=== PATIENT | male | born 1955 | race Caucasian/White ===

== ENCOUNTER 2018-08-25 13:37 | Emergency (ER) | payer OTHER ==
--- OUTSIDE RECORDS SUMMARY | 2018-08-25 13:40 | XMS REPORT | Encounter Summary ---
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 Acute upper respiratory infection upper respiratory infection (cold): care instructions 2. Pain in throat sore throat: care instructions rapid strep group A, throat Discussion Note: None recorded. Plan of Care Patient Instructions consider a trial of flonase and continue with zyrtec. follow up pcp Reminders Provider Appointments None recorded. Lab Rapid Strep Group a, Throat 05/08/2017 [facility] Referral None recorded. Procedures None recorded. Surgeries None recorded. Imaging None recorded. Medications Name Start Date Lamictal XR 200 mg tablet,extended release TK 1 T PO BID lamotrigine ER 100 mg tablet,extended release 24 hr TK 2 TS PO QAM AND TK 1 T PO QHS pantoprazole 40 mg tablet,delayed release TK 1 T PO ONCE A DAY UTD saw cppdwvz-kmbzlqwf-xci-AA-FA simvastatin 10 mg tablet TK 1 T PO ONCE QHS Medications Administered None recorded. Vitals Height Weight BMI Blood Pressure 5 ft 9 in 185 lbs 27.3 kg/m2 136/80 mm[Hg] Lab Results Date Name Specimen Result Interpretation Description Value Range Status Address Rapid Strep Group a, Throat Result negative [facility]: [address] [place] [address] Swab Location Left and Right tonsillar pillars [facility]: [address] [place] [address] Allergies Code Code System Name Reaction Severity Status Onset Penicillins Active Problems Name Status Onset Date Source Acute Sinusitis Active Encounter Acute Maxillary Sinusitis Active Encounter Acute Pharyngitis Active Encounter Allergic Rhinitis Active Encounter Influenza Due to Influenza a Virus Active Encounter Cellulitis Active Encounter Procedures Date Name Performed by Anesth Repair of Hernia Information not available Exploration of Foot Joint Information not available Vaccine List Vaccine Type influenza, injectable, quadrivalent 03/29/2016 05/07/2017 influenza, seasonal, injectable 03/29/2014 Social History Smoking Status Never Smoker Past Encounters 05/08/2017 Acute Upper Respiratory Infection; Pain in Throat Naga Price, [facility]-C: [address] [facility], [place] [address], Ph. History of Present Illness Fnwzq-Dhxnrewcpd-Qfiuvsk Reported By: Patient HPI: Location: head/sinuses, throat. Quality: productive cough, sore throat, nasal/sinus congestion, dry cough. Duration: 1days. Severity: mild, moderate. Onset/Timing: gradual. Context: no sick contacts, no foreign travel, non-smoker. Modifying factors: OTC medication. Associated Symptoms: no shortness of breath, no wheezing, no change in number of pillows needed to sleep at night, no sweats, no significant weight gain, no significant weight loss, no morning cough, no vomiting, no diarrhea, no rash, no nausea, no fever, no muscle aches, no headache, yellow sputum, sore throat Review of Systems:ROS as noted in the HPI Review of Systems Basic Reported By: Patient Physical Exam Adult Basic, Adult Male Complete Reported By: Patient Constitutional: General Appearance: healthy-appearing, well-nourished, well-developed. Level of Distress: NAD. Ambulation: ambulating normally Psychiatric: Mental Status: active and alert Eyes: Lids and Conjunctivae: non-injected, no discharge. Vision: acuity grossly intact, peripheral vision grossly intact Kck-Iaxx-Pvopq-Throat: Ears: no lesions on external ear, no outer ear tenderness, EACs clear, TMs clear, TM mobility normal. Hearing: no hearing loss. Nose: no lesions on external nose, nares patent, no septal deviation, nasal passages clear, no sinus tenderness, nasal discharge--rhinorrhea; congestion. Lips, Teeth, and Gums: no mouth or lip ulcers. Oropharynx: moist mucous membranes, no erythema, no exudates, tonsils not enlarged Neck: Neck: trachea midline. Lymph Nodes: no cervical LAD Lungs: Respiratory effort: no dyspnea, no tachypnea, no use of accessory muscles, no intercostal retractions. Auscultation: breath sounds normal, good air movement Cardiovascular: Heart Auscultation: RRR, no murmurs
--- OUTSIDE RECORDS SUMMARY | 2018-08-25 13:40 | XMS REPORT | Encounter Summary ---
Author Organization Unknown Address [address] [place] [address] Phone [phone] Reason for Visit Medical Complaint Instructions 1. Acute bronchitis peak flow bronchitis: care instructions Zithromax Z-Devang 250 mg tablet benzonatate 200 mg capsule ProAir HFA 90 mcg/actuation aerosol inhaler 2. Elevated blood pressure elevated blood pressure: care instructions dash diet: care instructions blood pressure monitoring education 3. Body mass index 25-29 - overweight learning about healthy weight Discussion Note: None recorded. Plan of Care Patient Instructions Your Care Instructions Bronchitis is inflammation of the bronchial tubes, which carry air to the lungs. The tubes swell and produce mucus, or phlegm. The mucus and inflamed bronchial tubes make you cough. You may have trouble breathing. Most cases of bronchitis are caused by viruses like those that cause colds. Antibiotics usually do not help and they may be harmful. Bronchitis usually develops rapidly and lasts about 2 to 3 weeks in otherwise healthy people. Follow-up care is a hung part of your treatment and safety. Be sure to make and go to all appointments, and call your doctor if you are having problems. It's also a good idea to know your test results and keep a list of the medicines you take. How can you care for yourself at home? Take all medicines exactly as prescribed. Call your doctor if you think you are having a problem with your medicine. Get some extra rest. Take an oakt-lpq-bwhjwui pain medicine, such as acetaminophen (Tylenol), ibuprofen (Advil, Motrin), or naproxen (Aleve) to reduce fever and relieve body aches. Read and follow all instructions on the label. Do not take two or more pain medicines at the same time unless the doctor told you to. Many pain medicines have acetaminophen, which is Tylenol. Too much acetaminophen (Tylenol) can be harmful. Take an efzl-qpa-ykpxqjn cough medicine that contains dextromethorphan to help quiet a dry, hacking cough so that you can sleep. Avoid cough medicines that have more than one active ingredient. Read and follow all instructions on the label. Breathe moist air from a humidifier, hot shower, or sink filled with hot water. The heat and moisture will thin mucus so you can cough it out. Do not smoke. Smoking can make bronchitis worse. If you need help quitting, talk to your doctor about stop-smoking programs and medicines. These can increase your chances of quitting for good. When should you call for help? Call 911 anytime you think you may need emergency care. For example, call if: You have severe trouble breathing. Call your doctor now or seek immediate medical care if: You have new or worse trouble breathing. You cough up dark brown or bloody mucus (sputum). You have a new or higher fever. You have a new rash. Watch closely for changes in your health, and be sure to contact your doctor if: You cough more deeply or more often, especially if you notice more mucus or a change in the color of your mucus. You are not getting better as expected. Reminders Provider Appointments None recorded. Lab None recorded. Referral None recorded. Procedures None recorded. Surgeries None recorded. Imaging None recorded. Medications Name Start Date benzonatate 200 mg capsule Take 1 capsule 3 times a day by oral route as needed for 10 days. lamotrigine ER 100 mg tablet,extended release 24 hr TK 2 T PO BID levetiracetam 250 mg tablet TK 1 T PO BID pantoprazole 40 mg tablet,delayed release TK 1 T PO QD ProAir HFA 90 mcg/actuation aerosol inhaler Inhale 2 puffs every 4 hours by inhalation route. simvastatin 10 mg tablet TK 1 T PO HS Zithromax Z-Devang 250 mg tablet TAKE 2 TABLETS (500 MG) BY ORAL ROUTE ONCE DAILY FOR 1 DAY THEN 1 TABLET (250 MG) BY ORAL ROUTE ONCE DAILY FOR 4 DAYS Medications Administered None recorded. Vitals Height Weight BMI Blood Pressure 5 ft 9 in 190 lbs 28.1 kg/m2 (1) 130/100 mm[Hg] (2) 150/100 mm[Hg] Lab Results Date Name Specimen Result Interpretation Description Value Range Status Address 08/18/2018 Peak Flow Pef 71% [facility]: [address] [place] [address] Percent Predicted Value 572 [facility]: [address] [place] [address] Allergies Code Code System Name Reaction Severity Status Onset Penicillins Active Problems Name Status Onset Date Source Hyperlipidemia Active 04/01/2018 Body Mass Index 25-29 - Overweight Active 04/01/2018 Seizure Disorder Active 04/01/2018 Procedures Date Name Performed by Anesth Repair of Hernia Information not available Exploration of Foot Joint Information not available Vaccine List Vaccine Type influenza, injectable, quadrivalent 03/29/2016 05/07/2017 03/30/2018 influenza, seasonal, injectable 03/29/2014 Social History Smoking Status Never Smoker Past Encounters 08/18/2018 Acute Bronchitis; Elevated Blood Pressure; Body Mass Index 25-29 - Overweight [facility] [employer]-C: [address] [place] [address], Ph. History of Present Illness Cough Reported By: Patient HPI: Location: chest. Quality: productive cough. Duration: symptoms lasting over 2 weeks. Severity: moderate. Onset/Timing: gradual. Context: no sick contacts, no foreign travel, non-smoker. Associated Symptoms: no sputum production, no shortness of breath, no wheezing, no sweats, no significant weight gain, no significant weight loss, no morning cough, no sore throat, no vomiting, no diarrhea, no rash, no nausea, no fever/chills, no muscle aches, no headache Review of Systems:ROS as noted in the HPI Review of Systems Basic Reported By: Patient Physical Exam Adult Basic, Adult Male Complete Reported By: Patient Constitutional: General Appearance: healthy-appearing, well-nourished, well-developed, overweight. Level of Distress: NAD. Ambulation: ambulating normally Psychiatric: Mental Status: active and alert. Orientation: to time, to place, to person Dkt-Tefz-Ufxwk-Throat: Ears: no lesions on external ear, no outer ear tenderness, EACs clear, TMs clear. Hearing: no hearing loss. Nose: no lesions on external nose, nares patent, no septal deviation, nasal passages clear, no sinus tenderness, no nasal discharge. Lips, Teeth, and Gums: no mouth or lip ulcers, no bleeding gums, normal dentition. Oropharynx: moist mucous membranes, no erythema, no exudates, tonsils not enlarged Lungs: Respiratory effort: no dyspnea, no tachypnea, no use of accessory muscles, no intercostal retractions. Auscultation: breath sounds normal, good air movement Cardiovascular: Heart Auscultation: RRR, no murmurs
--- OUTSIDE RECORDS SUMMARY | 2018-08-25 13:40 | XMS REPORT | Encounter Summary ---
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 Acute upper respiratory infection Zithromax Z-Devang 250 mg tablet 2. Allergic rhinitis prednisone 20 mg tablet allergies: care instructions 3. Feeling feverish rapid flu (A+B) Discussion Note: None recorded. Plan of Care Patient Instructions consider a trial of flonase and zyrtec if you havent already. may start on antibiotics in 4-5 days if not better. follow up pcp Reminders Provider Appointments None recorded. Lab Rapid Flu (A+B) 09/03/2016 [facility] Referral None recorded. Procedures None recorded. Surgeries None recorded. Imaging None recorded. Medications Name Start Date azithromycin 250 mg tablet weqpvnelxqbkyja-gjgkefoptvtdwyk-EC 2 mg-30 mg-10 mg/5 mL syrup TK 10 ML PO QID UTD FOR 7 DAYS Lamictal XR 200 mg tablet,extended release TK 1 T PO BID lamotrigine ER 100 mg tablet,extended release 24 hr pantoprazole 40 mg tablet,delayed release prednisone 20 mg tablet Prolensa 0.07 % eye drops saw wpozssr-pfitbrob-ptw-AA-FA simvastatin 10 mg tablet Tamiflu 75 mg capsule Vitamin D2 Medications Administered None recorded. Vitals Height Weight BMI Blood Pressure 5 ft 9 in 184 lbs 27.2 110/80 Lab Results Date Name Result Description Value Range Status Rapid Flu (A+B) Influenza a negative Influenza B negative Allergies Name Reaction Severity Onset Penicillins Problems Name Status Onset Date Source Acute Sinusitis Active Encounter Acute Maxillary Sinusitis Active Encounter Acute Pharyngitis Active Encounter Allergic Rhinitis Active Encounter Influenza Due to Influenza a Virus Active Encounter Cellulitis Active Encounter Procedures Date Name Performed by Anesth Repair of Hernia Information not available Exploration of Foot Joint Information not available Vaccine List Vaccine Type influenza, injectable, quadrivalent 03/28/2016 influenza, seasonal, injectable 03/28/2014 Social History Smoking Status Never Smoker Past Encounters 09/03/2016 Acute Upper Respiratory Infection; Allergic Rhinitis; Feeling Feverish Naga Price, [facility]-C: [address] [facility], [place] [address], Ph. History of Present Illness Uglik-Xzwgxysret-Lrsddbm Reported By: Patient HPI: Location: head/sinuses. Quality: nasal/sinus congestion, dry cough. Duration: 2days. Severity: moderate. Onset/Timing: gradual. Context: no sick contacts, no foreign travel, non-smoker. Modifying factors: OTC medication. Associated Symptoms: no sputum production, no shortness of breath, no wheezing, no change in number of pillows needed to sleep at night, no sweats, no significant weight gain, no significant weight loss, no morning cough, no sore throat, no vomiting, no diarrhea, no rash, no nausea, no fever, no muscle aches, no headache Review of Systems:ROS as noted in the HPI Review of Systems Basic Reported By: Patient Physical Exam Adult Basic, Adult Male Complete Reported By: Patient Constitutional: General Appearance: healthy-appearing, well-nourished, well-developed. Level of Distress: NAD. Ambulation: ambulating normally Psychiatric: Mental Status: active and alert Eyes: Lids and Conjunctivae: non-injected, no discharge Qel-Qnkx-Rovsa-Throat: Ears: no lesions on external ear, no outer ear tenderness, EACs clear, TMs clear, TM mobility normal. Hearing: no hearing loss. Nose: no lesions on external nose, nasal discharge--rhinorrhea. Lips, Teeth, and Gums: no mouth or [...]
--- OUTSIDE RECORDS SUMMARY | 2018-08-25 13:40 | XMS REPORT ---
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 Allergies, Adverse Reactions, Alerts This patient has no known allergies or adverse reactions. Medications This patient has no known medications. Results Test Description Test Time Test Comments Text Results Atomic Results Result Comments EEG AWAKE AND DROWSY 2017-05-08 13:09:00 Reason for exam:->seizures DATE OF REPORT: 05/08/17CC: [id number]: tart time: 08:28 amStop time: 08:57 amI-10: R 56.9CPT Code: 98002 HISTORY: 61 y.o, male who believes he has a seizure disorderat least since the mid 80's although he has no recollection. He believes he has had 2 grand mal seizures, one in the 80's and another in the 90's. The reason for this EEG is for further evaluation and possibly to modify his medication. MEDICATIONS THAT COULD AFFECT EEG: lamotrigine TECHNICAL SUMMARY: This is a digital EEG recorded with 32 input channels reviewed with bipolar and referential montages using the modified combinatorial system nomenclature. DESCRIPTION OF RECORD: During the maximally alert state, a 9-10 Hz posterior dominant rhythm was seen that was symmetric, reactive to eye opening and well regulated. More anteriorly, low voltage frontocentral beta predominated. Frequent, generalized appearing spike and slow wave discharges are seen, at times synchronous or with shifting laterality maximal over left fronto- central (F3/C3) or right fronto-central (F4/C4) areas. These epileptiform discharges are frequently followed by bursts of generalized 1.5-3 Hz activity lasting 1-3 seconds. Rare sharp waves are seen over the left anterior temporal region (F7). Drowsiness was characterized by alpha attenuation and increased frontocentral theta, vertex sharp transients and POSTS. Stage 2 sleep was reached characterized by symmetric sleep spindles and K-complexes. HV: Hyperventilation was performed for 3 minutes with good effort. No change was seen with HV. PHOTIC STIMULATION: Flash stimulation was done from 3-18 Hz; no photic driving was seen; photoparoxysmal responses were absent. IMPRESSION: This is an abnormal EEG due to the presence of :1. Frequent generalized appearing spike and wave discharges, with shifting laterality over left fronto- central (F3/C3) or right fronto-central (F4/C4) regions2. 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 The presence of focal left temporal sharp waves suggest an underlying focal cortical irritability. No electrographic seizures were seen. Neelima Schrader MDNeurophysiology/Epilepsy FellowAleyda Gallego MDNeurophysiology Attending -CREATININE 2016-09-12 09:51:00 POC-CREATININE (BEAKER) (test emhw=7206) 1.1 mg/dL 0.6-1.3 TESTED AT [facility] [address] [facility] [address] POC-EGFR (BEAKER) (test sumo=8704) 68 mL/min/1.73M2 COMPREHENSIVE METABOLIC [id number] 16:12:00* Test Item Value Reference Range Comments TOTAL PROTEIN (BEAKER) (test pgzs=010) 7.2 gm/dL 6.0-8.3 ALBUMIN (BEAKER) (test mnba=0474) 4.4 g/dL 3.5-5.0 ALKALINE PHOSPHATASE (BEAKER) (test llkq=410) 89 U/L 40-150 BILIRUBIN TOTAL (BEAKER) (test ieyh=843) 0.8 mg/dL 0.2-1.2 SODIUM (BEAKER) (test mubn=415) 141 meq/L 136-145 POTASSIUM (BEAKER) (test hepe=580) 3.7 meq/L 3.5-5.1 CHLORIDE (BEAKER) (test xqqt=809) 106 meq/L 98-107 CO2 (BEAKER) (test lcpf=126) 26 meq/L 22-29 BLOOD UREA NITROGEN (BEAKER) (test nnes=554) 13 mg/dL 7-21 CREATININE (BEAKER) (test chur=815) 0.96 mg/dL 0.57-1.25 GLUCOSE RANDOM (BEAKER) (test sduv=917) 84 mg/dL 70-105 CALCIUM (BEAKER) (test zwzw=437) 9.1 mg/dL 8.4-10.2 AST (SGOT) (BEAKER) (test iwnn=440) 18 U/L 5-34 ALT (SGPT) (BEAKER) (test skap=494) 21 U/L 6-55 EGFR (BEAKER) (test ehci=3316) 79 mL/min/1.73 sq m ESTIMATED GFR IS NOT ACCURATE CREATININE CLEARANCE IN PREDICTING GLOMERULAR FILTRATION RATE. ESTIMATED GFR IS NOT APPLICABLE FOR DIALYSIS PATIENTS. CREATINE KINASE (CK), TOTAL AND [id number] 14:51:00* Test Item Value Reference Range Comments CREATINE KINASE TOTAL (ALYSSAAKER) (test wppg=402) 127 U/L 29-200 CREATINE KINASE-MB (ALYSSAAKER) (test tkhr=402) 2.0 ng/mL 0.0-6.6 CREATINE KINASE-MB INDEX (ALYSSAAKER) (test jdqm=331) 1.6 % Effective 05/16/2014: CK-MB Reference Range ChangeNew: 0.0-6.6 Previous: 0.0- 4.9CK-MB Reference Range:<6.7 Normal6.7-10.0 Borderline>10.0 Abnormal TROPONIN [id number] 14:51:00* Test Item Value Reference Range Comments TROPONIN I (АННА) (test nebe=648) < ng/mL 0.00-0.03 Effective 05/16/2014: Reference Range ChangeNew: 0.00-0.03 Previous 0.00-0.15T roponin I (TnI) levels must be interpreted in the context of the presenting symp toms and the clinical findings. Elevated TnI levels indicate myocardial damage, but are not specific for ischemic heart disease. Elevated TnI levels are seen in patients with other cardiac conditions (including myocarditis and congestive he art failure), and slight TnI elevations occur in patients with other conditions, including sepsis, renal failure, acidosis, acute neurological disease, and pers istent tachyarrhythmia.[id number] 14:47:00* Test Item Value Reference Range Comments LIPASE (BEAKER) (test jowk=031) 17 U/L 8-78 URINALYSIS W/ [id number] 14:46:00* Test Item Value Reference Range Comments COLOR (BEAKER) (test nsvz=631) Light Yellow CLARITY (BEAKER) (test cjed=278) Clear SPECIFIC GRAVITY UA (BEAKER) (test gmgi=957) 1.007 1.001-1.035 PH UA (BEAKER) (test gqwi=517) 6.0 5.0-8.0 PROTEIN UA (BEAKER) (test esur=792) Negative Negative GLUCOSE UA (BEAKER) (test mxzk=036) Negative Negative KETONES UA (BEAKER) (test mooq=680) Negative Negative BILIRUBIN UA (BEAKER) (test cobv=876) Negative Negative BLOOD UA (BEAKER) (test klnl=626) Trace Negative NITRITE UA (BEAKER) (test qrac=292) Negative Negative LEUKOCYTE ESTERASE UA (BEAKER) (test uncu=729) Trace Negative UROBILINOGEN UA (BEAKER) (test pnbg=447) 0.2 mg/dL 0.2-1.0 RBC UA (BEAKER) (test qpem=268) 1 /HPF WBC UA (BEAKER) (test ncut=574) 3 /HPF SOURCE(BEAKER) (test vcgg=8075) Urine, Voided CBC W/PLT COUNT & AUTO [id number] 14:32:00* Test Item Value Reference Range Comments WHITE BLOOD CELL COUNT (BEAKER) (test qfjm=062) 7.1 K/ L 4.0-10.0 RED BLOOD CELL COUNT (BEAKER) (test fxaj=911) 4.82 M/ L 4.20-5.80 HEMOGLOBIN (BEAKER) (test fvqs=936) 16.1 GM/DL 13.0-16.8 HEMATOCRIT (BEAKER) (test yygi=807) 46.4 % 40.0-50.0 MEAN CORPUSCULAR VOLUME (BEAKER) (test msqb=861) 96.4 fL 82.0-98.0 MEAN CORPUSCULAR HEMOGLOBIN (BEAKER) (test yvjo=522) 33.4 pg 27.0-33.0 MEAN CORPUSCULAR HEMOGLOBIN CONC (BEAKER) (test vohv=910) 34.7 GM/DL 32.0-36.0 RED CELL DISTRIBUTION WIDTH (BEAKER) (test wilx=401) 11.3 % 10.3-14.2 PLATELET COUNT (BEAKER) (test bmxb=302) 169 K/CU MM 150-430 MEAN PLATELET VOLUME (BEAKER) (test xmcq=367) 7.3 fL 6.5-10.5 NUCLEATED RED BLOOD CELLS (BEAKER) (test vcsk=871) 0 /100 WBC 0-0 NEUTROPHILS RELATIVE PERCENT (BEAKER) (test nzps=053) 49 % LYMPHOCYTES RELATIVE PERCENT (BEAKER) (test cwym=986) 41 % MONOCYTES RELATIVE PERCENT (BEAKER) (test czsi=440) 9 % EOSINOPHILS RELATIVE PERCENT (BEAKER) (test vfwr=226) 1 % BASOPHILS RELATIVE PERCENT (BEAKER) (test chax=359) 0 % NEUTROPHILS ABSOLUTE COUNT (BEAKER) (test ortb=946) 3.46 K/ L 1.80-8.00 LYMPHOCYTES ABSOLUTE COUNT (BEAKER) (test icen=988) 2.93 K/ L 1.48-4.50 MONOCYTES ABSOLUTE COUNT (BEAKER) (test qhrl=782) 0.64 K/ L 0.00-1.30 EOSINOPHILS ABSOLUTE COUNT (BEAKER) (test atzo=959) 0.06 K/ L 0.00-0.50 BASOPHILS ABSOLUTE COUNT (BEAKER) (test jker=689) 0.03 K/ L 0.00-0.20 0.00
--- OUTSIDE RECORDS SUMMARY | 2018-08-25 13:40 | XMS REPORT | Encounter Summary ---
Author Organization Unknown Address [address] [place] [address] Phone [phone] Care Team Providers Care Gear Nicker Name Role Phone Dakota Krishnan 3 [phone] Reason for Visit Medical Complaint Instructions 1. Acute sinusitis sinusitis: care instructions Zithromax Z-Devang 250 mg tablet 2. Cough cough: care instructions benzonatate 100 mg capsule 3. Sore throat symptom rapid strep group A, throat 4. Body mass index 25-29 - overweight Discussion Note Take an vutv-gcm-sbhvtqo pain medicine, such as acetaminophen (Tylenol), ibuprofen (Advil, Motrin), or naproxen (Aleve). Read and follow all instructions on the label. If the doctor prescribed antibiotics, take them as directed. Do not stop taking them just because you feel better. You need to take the full course of antibiotics. Be careful when taking boar-san-xcdcrvu cold or flu medicines and Tylenol at the same time. Plan of Care Reminders Provider Appointments None recorded. Lab Rapid Strep Group a, Throat 04/01/2018 [facility] Referral None recorded. Procedures None recorded. Surgeries None recorded. Imaging None recorded. Medications Name Start Date benzonatate 100 mg capsule Take 2 capsules 3 times a day by oral route as directed for 10 days. lamotrigine ER 100 mg tablet,extended release 24 hr TK 2 TS PO BID levetiracetam 250 mg tablet TK 1 T PO BID pantoprazole 40 mg tablet,delayed release TK 1 T PO QD simvastatin 10 mg tablet TK 1 T PO HS Zithromax Z-Devang 250 mg tablet TAKE 2 TABLETS (500 MG) BY ORAL ROUTE ONCE DAILY FOR 1 DAY THEN 1 TABLET (250 MG) BY ORAL ROUTE ONCE DAILY FOR 4 DAYS Medications Administered None recorded. Vitals Height Weight BMI Blood Pressure 5 ft 9 in 190 lbs 28.1 kg/m2 100/70 mm[Hg] Lab Results Date Name Specimen Result Interpretation Description Value Range Status Address Rapid Strep Group a, Throat Result negative [facility]: [facility] Swab Location Left and Right tonsillar pillars [facility]: [facility] Allergies Code Code System Name Reaction Severity [...] History Smoking Status Never Smoker Past Encounters 04/01/2018 Acute Sinusitis; Cough; Sore Throat Symptom; Body Mass Index 25-29 - Overweight Román Perez PA-C: [address] [place] [address], Ph. History of Present Illness Ufpxd-Jivtrflzqk-Uwxldtf Reported By: Patient HPI: Location: head/sinuses, throat. Quality: productive cough, sore throat, colored phlegm, nasal/sinus congestion. Duration: 7days. Severity: mild. Onset/Timing: sudden. Context: no sick contacts, no foreign travel, non-smoker. Associated Symptoms: no sputum production, no shortness of breath, no wheezing, no change in number of pillows needed to sleep at night, no sweats, no significant weight gain, no significant weight loss, no morning cough, no vomiting, no diarrhea, no rash, no nausea, no fever, no muscle aches, sore throat, headache; brown sputum Review of Systems Basic Reported By: Patient Constitutional: Constitutional: no fever Eyes: Eyes: no eye complaints Dzqb-Hteb-Efzkv-Throat: Ears: no ear complaints. Nose: nose/sinus problems. Mouth/Throat: no bleeding gums, no mouth complaints, no teeth problems, sore throat Cardiovascular: Cardiovascular: no chest pain, no shortness of breath, no known heart murmur Respiratory: Respiratory: no wheezing, no shortness of breath, cough Gastrointestinal: Gastrointestinal: no abdominal pain, no vomiting / diarrhea Genitourinary: Genitourinary: no urinary complaints, no discharge Musculoskeletal: Musculoskeletal: no muscle aches, no muscle weakness, no arthralgias/joint pain, no back pain Skin: Skin: no abnormal / changing mole, no jaundice, no rashes Neurologic: Neurologic: no loss of consciousness, no weakness, no numbness, no seizures, no dizziness, no headaches, headache Physical Exam Adult Basic Reported By: Patient Constitutional: General Appearance: healthy-appearing, well-nourished, well-developed. Level of Distress: NAD. Ambulation: ambulating normally Psychiatric: Mental Status: active and alert. Orientation: to time, to place, to person Eyes: Lids and Conjunctivae: non-injected, no discharge, no pallor. Pupils: PERRLA. EOM: EOMI. Sclerae: non-icteric. Vision: acuity grossly intact Vyw-Ebfm-Byknt-Throat: Ears: no lesions on external ear, no outer ear tenderness, EACs clear, TMs clear. Hearing: no hearing loss. Nose: no lesions on external nose, nares patent, no septal deviation, nasal passages clear, sinus tenderness, post nasal drip. Lips, Teeth, and Gums: no mouth or lip ulcers, no bleeding gums, normal dentition. Oropharynx: moist mucous membranes, no exudates, tonsils not enlarged, erythema; cobblestoning Neck: Neck: supple, trachea midline, no masses, FROM. Lymph Nodes: no cervical LAD, no supraclavicular LAD, no inguinal LAD Lungs: Respiratory effort: no dyspnea, no tachypnea, no use of accessory muscles, no intercostal retractions. Auscultation: breath sounds normal Cardiovascular: Heart Auscultation: RRR, no murmurs
--- OUTSIDE RECORDS SUMMARY | 2018-08-25 13:40 | XMS REPORT | Clinical Summary ---
Author Author LISA Animoto Qriket [facility] Center[facility] Address Unknown Phone Unavailable Care Team Providers Care Clinical Laboratory Science Professor Name Role Phone Jeremy Krishnan PCP Allergies Comments Active Allergy Reactions Severity Noted Date Penicillins 09/01/2013 Medications End Date Status Medication Sig Dispensed Refills Start Date Active lamoTRIgine (LAMICTAL XR) Take 100 mg 0 100 mg TR24 by mouth 3 (three) times daily . Active simvastatin (ZOCOR) 10 MG Take 10 mg by 0 tablet mouth nightly. Active aspirin 81 MG EC tablet Take 81 mg by 0 mouth daily. Active saw palmetto 500 MG Take 450 mg 0 capsule by mouth 2 (two) times daily . Active cholecalciferol, vitamin Take by 0 D3, (VITAMIN D3) 2,000 mouth. unit Cap Active esomeprazole (NEXIUM) 40 Take 40 mg by 0 MG capsule mouth daily. Active Problems Problem Noted Date Seizure disorder 09/02/2013 Last Assessment & Plan: Seizure disorder is currently well controlled on his present meds therefore we will not make any med changes. Hypercholesterolemia 09/02/2013 Last Assessment & Plan: Cholesterol is being treated with a statin, will follow cholesterol and make med changes as needed. Hernia 09/02/2013 Last Assessment & Plan: No evidence of recurrence of the patient's hernia, therefore, no further care is needed at this time. 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 Family History Medical History Relation Name Comments Unremarkable Brother Heart disease Father Kidney disease Father Relation Name Status Comments Brother Alive Father Mother Lymphoma Social History Date Tobacco Use Types Packs/Day Years Used Never Smoker Alcohol Use Drinks/Week oz/Week Comments No Sex Assigned at Date Recorded Not on file Industry Job Start Date Occupation Not on file Not on file Not on file Travel End Travel History Travel Start No recent travel history available. Last Filed Vital Signs Not on file Plan of Treatment Health Maintenance Due Date Last Done Comments INFLUENZA VACCINE 03/29/2018 Results Not on fileafter 08/24/2017 Insurance Payer Benefit Subscriber ID Type Phone Address Plan / Group [employer] - MGD CARE CIG[employer] xxxxxxxxxxx HMO/POS HMO/POS/OP EN ACCESS
--- OUTSIDE RECORDS SUMMARY | 2018-08-25 13:40 | XMS REPORT | Continuity of Care Document ---
Author Author [facility] Interface Address Unknown Phone Unavailable Problems Problem Status Onset Date Classification Date Reported Comments Source Body mass index 25-29 - overweight 08/18/2018 Diagnosis 08/18/2018 [facility] Elevated blood pressure 08/18/2018 Diagnosis 08/18/2018 [facility] Acute bronchitis 08/18/2018 Diagnosis 08/18/2018 [facility] Cough 04/01/2018 Diagnosis 04/01/2018 [facility] Sore throat symptom 04/01/2018 Diagnosis 04/01/2018 [facility] Acute sinusitis 04/01/2018 Diagnosis 04/01/2018 [facility] Hyperlipidemia 04/01/2018 Problem 08/18/2018 [facility] Body Mass Index 25-29 - Overweight 04/01/2018 Problem 08/18/2018 [facility] Seizure Disorder 04/01/2018 Problem 08/18/2018 [facility] LOWER BACK PAIN Active 02/20/2018 [facility] Acute upper respiratory infection 05/08/2017 Diagnosis 05/08/2017 [facility] Pain in throat 05/08/2017 Diagnosis 05/08/2017 [facility] Allergic rhinitis 09/03/2016 Diagnosis 09/04/2016 [facility] Feeling feverish 09/03/2016 Diagnosis 09/04/2016 [facility] Acute Sinusitis Problem 05/08/2017 [facility] Acute Maxillary Sinusitis Problem 05/08/2017 [facility] Acute Pharyngitis Problem 05/08/2017 [facility] Allergic Rhinitis Problem 05/08/2017 [facility] Influenza Due to Influenza a Virus Problem 05/08/2017 [facility] Cellulitis Problem 05/08/2017 [facility] Medications Medication Details Route Status Patient Instructions Ordering Provider Order Date Source benzonatate 100 MG Oral Capsule benzonatate 100 mg capsule Take 2 capsules 3 times a day by oral route as directed for 10 days. Active [facility] 24 HR lamotrigine 100 MG Extended Release Oral Tablet lamotrigine ER 100 mg tablet,extended release 24 hr TK 2 T PO BID Active [facility] Levetiracetam 250 MG Oral Tablet levetiracetam 250 mg tablet TK 1 T PO BID Active [facility] pantoprazole 40 MG Delayed Release Oral Tablet pantoprazole 40 mg tablet,delayed release TK 1 T PO QD Active [facility] Simvastatin 10 MG Oral Tablet simvastatin 10 mg tablet TK 1 T PO HS Active [facility] Azithromycin 250 MG Oral Tablet Zithromax Z-Devang 250 mg tablet TAKE 2 TABLETS (500 MG) BY ORAL ROUTE ONCE DAILY FOR 1 DAY THEN 1 TABLET (250 MG) BY ORAL ROUTE ONCE DAILY FOR 4 DAYS Active [facility] 24 HR lamotrigine 200 MG Extended Release Oral Tablet [Lamictal] Lamictal XR 200 mg tablet,extended release TK 1 T PO BID Active [facility] saw zuftjsy-ivpcqtvd-skr-AA-FA saw nqwcfwq-iqgfjhhq-opx-AA-FA Active [facility] benzonatate 200 MG Oral Capsule benzonatate 200 mg capsule Take 1 capsule 3 times a day by oral route as needed for 10 days. Active [facility] Albuterol 0.09 MG/ACTUAT Metered Dose Inhaler ProAir HFA 90 mcg/actuation aerosol inhaler Inhale 2 puffs every 4 hours by inhalation route. Active [facility] Brompheniramine Maleate 0.4 MG/ML / Dextromethorphan Hydrobromide 2 MG/ML / Pseudoephedrine Hydrochloride 6 MG/ML Oral Solution qjvumnafizgbtzc-fftpxmdrxmwghas-CE 2 mg-30 mg-10 mg/5 mL syrup TK 10 ML PO QID UTD FOR 7 DAYS Active [facility] Prednisone 20 MG Oral Tablet prednisone 20 mg tablet Active [facility] bromfenac 0.7 MG/ML Ophthalmic Solution [Prolensa] Prolensa 0.07 % eye drops Active [facility] Oseltamivir 75 MG Oral Capsule [Tamiflu] Tamiflu 75 mg capsule Active [facility] Vitamin D2 Vitamin D2 Active [facility] Allergies, Adverse Reactions, Alerts Substance Category Reaction Severity Reaction type Status Date Reported Comments Source Penicillins Allergy to substance 08/02/2008 [facility] Immunizations Immunization Date Given Site Status Last Updated Comments Source influenza, injectable, quadrivalent 03/30/2018 completed [facility] influenza, injectable, quadrivalent 05/07/2017 completed [facility] influenza, injectable, quadrivalent 03/29/2016 completed [facility] influenza, seasonal, injectable 03/29/2014 completed [facility] Results Order Name Results Value Reference Range Date Interpretation Comments Source PEF 71 % 08/18/2018 [facility] Percent Predicted Value 572 08/18/2018 [facility] RESULT negative 04/01/2018 [facility] SWAB LOCATION Left and Right tonsillar pillars 04/01/2018 [facility] RESULT negative 05/08/2017 [facility] SWAB LOCATION Left and Right tonsillar pillars 05/08/2017 [facility] Influenza A negative 09/03/2016 [facility] Influenza B negative 09/03/2016 [facility] Vital Signs Vital Sign Value Date Comments Source Diastolic (mm Hg) 100 08/18/2018 [facility] Height 69 08/18/2018 [facility] Systolic (mm Hg) 150 08/18/2018 [facility] Weight 190 08/18/2018 [facility] Diastolic (mm Hg) 70 04/01/2018 [facility] Height 69 04/01/2018 [facility] Systolic (mm Hg) 100 04/01/2018 [facility] Weight 190 04/01/2018 [facility] Diastolic (mm Hg) 80 05/08/2017 [facility] Height 69 05/08/2017 [facility] Systolic (mm Hg) 136 05/08/2017 [facility] Weight 185 05/08/2017 [facility] Diastolic (mm Hg) 80 09/03/2016 [facility] Height 69 09/03/2016 [facility] Systolic (mm Hg) 110 09/03/2016 [facility] Weight 184 09/03/2016 [facility] Encounters Location Location Details Encounter Type Encounter Number Reason For Visit Attending Provider ADM Date DC Date Status Source [place] - [facility] - [id number] GarciaC: [address] [place] [address], Ph. [id number] Naga Price 09/03/2016 [facility] [place] - [facility] - [id number] GarciaC: [address] [place] [address], Ph. [id number] Naga Price 05/08/2017 [facility] [place] - [facility] - [id number] LINDA De Luna-C: [address] [place] [address], Ph. [id number] Román Perez 04/01/2018 [facility] [place] - [facility] - [id number] MIRZA Hodge-C: [address] [place] [address], Ph. [id number] Leonard Chinchilla 08/18/2018 [facility] Procedures Procedure Code Date Perfomer Comments Source Anesth Repair of Hernia 07987 [facility] Exploration of Foot Joint [id number] [facility] Anesth Repair of Hernia [facility] Exploration of Foot Joint [facility]
--- NOTE | 2018-08-25 14:13 | NUR ---
called pt from [facility] and states he just hung up with his doctor who told him he was at the wrong [facility] and he was waiting for him at the [facility]. pt was very appologic and said if he needs us next time he'll know to come here, 'Ya'll are so sweet.'
== END 2018-08-25 14:14 | disposition short-term general hospital (02) ==
LOC: FSED 13:37
DX: R10.9 Unspecified abdominal pain (principal)